=== PATIENT | male | born 1960 | race Caucasian/White ===

== ENCOUNTER 2018-12-12 01:44 | Observation (INO) ==
[2018-12-12] MEDS ORDERED: ACETAMINOPHEN 325 MG TABLET PO PRN (03:10)
[2018-12-12] MEDS: LEVOTHYROXINE 100 MCG TABLET PO SCH (05:59)
[2018-12-12 07:35] LABS: Calcium 9.7 MG/DL (8.5-10.1); Osmolality,Calculated 282.4 MOS/KG (273-304); Risk Ratio 2.16; VLDL CHOLESTEROL 16.4 MG/DL
[2018-12-12] MEDS: ATORVASTATIN 80 MG TABLET PO SCH (08:47)
[2018-12-12] MEDS: METOPROLOL TARTRATE 25 MG TABLET PO SCH ×2 (08:47→21:29)
[2018-12-12] MEDS: CHLORTHALIDONE 25 MG TABLET PO SCH (08:48)
[2018-12-12] MEDS: ASPIRIN EC 81 MG TABLET PO SCH (08:48)
[2018-12-12] MEDS: APIXABAN 5 MG TABLET PO SCH ×2 (08:48→21:29)
[2018-12-12] MEDS: PANTOPRAZOLE 40 MG TABLET PO SCH (08:48)
[2018-12-12] MEDS ORDERED: METOPROLOL TARTRATE 25 MG TABLET PO SCH (09:00)
[2018-12-12] MEDS ORDERED: NON-FORMULARY MEDICATION (Lansoprazole 30 MG) PO SCH (09:00)
[2018-12-12] MEDS ORDERED: amLODIPine 5 MG TABLET PO SCH (09:00)
[2018-12-13 05:58] LABS: Basophils # 0.1 10*3/uL (0.0-0.2); Basophils % 0.6 % (0.0-0.8); Eosinophils # 0.4 10*3/uL (0.0-0.87); Eosinophils % 3.8 % (0.00-10.9); Hematocrit 44.9 VOL% (42.0-52.0); Hemoglobin 15.7 GM/DL (14.0-18.0); Immature Granulocytes % 0.3 %; Immature Granulocytes Absolute 0.03 #; Lymphocytes # 2.8 10*3/uL (1.4-4.0); Lymphocytes % 29.6 % (21.2-54.2); Mean Corpuscular Volume 93.7 FL (87-102); Mean Platelet Volume 10.2 FL (9.6-12.0); Monocytes % 11.6 % (1.7-12.7); Neutrophils % 54.1 % (38.7-73.9); Platelet Count 214 T/CUMM (130-400); Red Blood Count 4.79 MC/CUMM (3.8-5.5); Red Cell Distribution Width 13.1 % (9.3-17.3); White Blood Count 9.6 T/CUMM (4-12)
[2018-12-13 06:08] LABS: Calcium 9.1 MG/DL (8.5-10.1); Osmolality,Calculated 279.5 MOS/KG (273-304)
[2018-12-13] MEDS: LEVOTHYROXINE 100 MCG TABLET PO SCH (06:10)
[2018-12-13] MEDS: ASPIRIN EC 81 MG TABLET PO SCH (09:28)
[2018-12-13] MEDS: APIXABAN 5 MG TABLET PO SCH (09:29)
[2018-12-13] MEDS: CHLORTHALIDONE 25 MG TABLET PO SCH (09:29)
[2018-12-13] MEDS: ATORVASTATIN 80 MG TABLET PO SCH (09:29)
[2018-12-13] MEDS: METOPROLOL TARTRATE 25 MG TABLET PO SCH (09:30)
[2018-12-13] MEDS: PANTOPRAZOLE 40 MG TABLET PO SCH (09:30)
[2018-12-13 15:54] VITALS: BP 123/83
[2018-12-16] MEDS ORDERED: ERGOCALCIFEROL 50,000 UNIT CAPSULE PO SCH (09:00)
== END 2018-12-13 16:31 | disposition home or self-care (01) ==
LOC: N.ICU 01:47 → SUATTDRO 03:10 → INTOOBSV 03:13 → N.TELEN 14:44
PROVIDERS: ADMIT Internal Medicine; ATTEND Internal Medicine